=== PATIENT | female | born 1970 | race Caucasian/White ===

== ENCOUNTER 2022-06-21 03:20 | Emergency (ER) | payer OTHER ==
[~2022-06-21] VITALS: Ht 157.5 cm; Wt 64.4 kg
[2022-06-21] MEDS ORDERED: ONDANSETRON 4 MG/2 ML VIAL ONE (03:53)
[2022-06-21] MEDS ORDERED: OMEP20CA15 PO (03:59)
[2022-06-21] MEDS ORDERED: IV LACTATED RINGERS SOLUTION 1,000 ML IV ONE (04:00)
[2022-06-21] MEDS ORDERED: ONDANSETRON 4 MG/2 ML VIAL IV ONE (04:00)
[2022-06-21] MEDS ORDERED: HYDROMORPHONE 1 MG/1 ML DISP.SYRIN IV ONE (04:00)
[2022-06-21] MEDS ORDERED: HYDROMORPHONE 1 MG/1 ML DISP.SYRIN ONE (04:07)
[2022-06-21 04:09] LABS: HEMATOCRIT 43.9 % (31.2-41.9); MEAN CORPUSCULAR HEMOGLOBIN 28.7 uug (24.7-32.8); MEAN CORPUSCULAR VOLUME 84.2 fL (75.5-95.3); PLATELET COUNT (AUTO) 197 K/uL (179-408)
--- NOTE | 2022-06-21 04:20 | NUR ---
Patient taken to CT
[2022-06-21 06:02] LABS: CREATININE 0.8 mg/dL (0.6-1.3); POTASSIUM 3.7 mmol/L (3.5-5.1)
[2022-06-21 06:08] LABS: BILIRUBIN,DIRECT 0.1 mg/dL (0.0-0.2); BILIRUBIN,TOTAL 0.3 mg/dL (0.2-1.0); TOTAL PROTEIN, SERUM 7.9 g/dL (6.4-8.2)
[2022-06-21] MEDS ORDERED: ONDA4TAB5 PO (06:17)
[2022-06-21] MEDS ORDERED: HYDR-4209 PO (06:17)
--- NOTE | 2022-06-21 07:03 | NUR ---
IV removed. Catheter intact and site benign. Pressure and 4x4 gauze applied to site. No bleeding noted.
--- NOTE | 2022-06-21 07:05 | NUR ---
Patient discharged to home in stable condition with friend taking patient home. Written and verbal after care instructions given. Patient verbalizes understanding of instructions. Stressed follow up or return to ER for worsening s/s.
[2022-06-21 07:06] VITALS: BP 125/70
== END 2022-06-21 07:07 | disposition home or self-care (01) ==
LOC: ER 03:28
DX: R51.9 Headache, unspecified (principal); R11.2 Nausea with vomiting, unspecified; Z20.822 Contact with and (suspected) exposure to COVID-19
CPT/HCPCS: 99284; 96374; 70450; 96375; 87426; 80076; 80048; 83690; 85025; 85651; 36415; J2405; J1170; J7120; A4663